=== PATIENT | female | born 1985 | race Caucasian/White ===

== ENCOUNTER 2017-05-04 17:40 | Outpatient (CLI) | payer OTHER ==
[~2017-05-04] VITALS: Ht 162.6 cm; Wt 74.0 kg
[~2017-05-04 17:40] MED LIST: IBUP-1222 PO
[2017-05-04 17:45] VITALS: BP 135/83
[2017-05-04] MEDS ORDERED: PREN1TAB60 PO (17:56)
[2017-05-04] MEDS ORDERED: FENTANYL/BUPIV./NS/PF 250 ML EPIDCONT ONE (19:25)
[2017-05-04] MEDS ORDERED: LIDOCAINE/PF 1.5%-EPI 1:200K, 30ML ONE (19:25)
[2017-05-04] MEDS ORDERED: BUPIVACAINE/PF 0.25% ONE (19:25)
[2017-05-05] MEDS ORDERED: IBUP-1222 PO (11:35)
[2017-05-05] MEDS ORDERED: OXYC-302 PO (11:36)
== END 2017-05-04 19:59 | disposition home or self-care (01) ==
LOC: LDOP 17:40
PROVIDERS: ATTEND Obstetrics & Gynecology
DX: Z02.9 Encounter for administrative examinations, unspecified (principal)
CPT/HCPCS: J3490; J3010

== ENCOUNTER → 2018-11-04 | Outpatient (CLI) | payer OTHER ==
[~2018-11-04] MED LIST changes: +LIDOCAINE-MPF 1%, 5ML ONE; +OXYC-302 PO; +PREN1TAB60 PO
== END | disposition home or self-care (01) ==
LOC: RAD 13:12
PROVIDERS: ATTEND Surgery
DX: E04.1 Nontoxic single thyroid nodule (principal)
CPT/HCPCS: 10005; 88173

== ENCOUNTER → 2019-08-16 | Outpatient (CLI) | payer OTHER ==
[~2019-08-16] MED LIST changes: -LIDOCAINE-MPF 1%, 5ML ONE; +No meds per pt.
== END | disposition home or self-care (01) ==
LOC: STAR 10:35
PROVIDERS: ATTEND Surgery
DX: Z01.818 Encounter for other preprocedural examination (principal); E04.1 Nontoxic single thyroid nodule
CPT/HCPCS: 36415; 84432; 86800

== ENCOUNTER 2019-08-23 06:03 | Day surgery (SDC) | payer OTHER ==
[~2019-08-23] VITALS: Ht 162.6 cm; Wt 64.2 kg
[2019-08-23] MEDS ORDERED: LACTATED RINGERS 1,000 ML IV SCH (06:33)
[2019-08-23 06:35] VITALS: BP 103/66
[2019-08-23] MEDS ORDERED: MIDAZOLAM 1 MG/ML, 2ML ONE (06:49)
[2019-08-23] MEDS ORDERED: PROPOFOL 50 ML ONE (06:49)
[2019-08-23 06:50] LABS: HCG UR SG 1.023 (1.003-1.030)
[2019-08-23] MEDS ORDERED: FENTANYL PF 250 MCG/5ML ONE (06:50)
[2019-08-23] MEDS ORDERED: ROCURONIUM 10MG/ML,5ML ONE (06:53)
[2019-08-23] MEDS ORDERED: DEXAMETHASONE 4 MG/ML, 1ML ONE (06:53)
[2019-08-23] MEDS ORDERED: SUCCINYLCHOLINE 20 MG/ML, 10ML ONE (06:53)
[2019-08-23] MEDS ORDERED: ONDANSETRON 2MG/ML, 2ML ONE (06:53)
[2019-08-23] MEDS ORDERED: CEFAZOLIN 1,000 MG ONE (06:53)
[2019-08-23] MEDS ORDERED: ACETAMINOPHEN 325 MG TABLET PO PRN (07:30)
[2019-08-23] MEDS ORDERED: DIAZEPAM 5 MG/ML, 2ML IVPush PRN (07:30)
[2019-08-23] MEDS ORDERED: PROMETHAZINE 25 MG/ML, 1ML IV PRN (07:30)
[2019-08-23] MEDS ORDERED: MIDAZOLAM 1 MG/ML, 2ML IV PRN (07:30)
[2019-08-23] MEDS ORDERED: METOPROLOL 1 MG/ML, 5ML IV PRN (07:30)
[2019-08-23] MEDS ORDERED: ONDANSETRON 2MG/ML, 2ML IV PRN (07:30)
[2019-08-23] MEDS ORDERED: EPHEDRINE 50 MG/ML, 1ML IVPush PRN (07:30)
[2019-08-23] MEDS ORDERED: MEPERIDINE/PF 25MG/ML,1ML IVPush PRN (07:30)
[2019-08-23] MEDS ORDERED: OXYcodone 5 MG/5 ML ORAL.SOL UDC PO PRN (07:30)
[2019-08-23] MEDS ORDERED: DIPHENHYDRAMINE 50 MG/ML, 1ML IVPush PRN (07:30)
[2019-08-23] MEDS ORDERED: ONDANSETRON ODT 8 MG PO PRN (07:30)
[2019-08-23] MEDS ORDERED: hydrALAzine 20 MG/ML, 1ML IV PRN (07:30)
[2019-08-23] MEDS ORDERED: HYDROmorphone 2 MG/ML, 1ML IVPush PRN (07:30)
[2019-08-23] MEDS ORDERED: EPHEDRINE 50 MG/ML, 1ML IM PRN (07:30)
[2019-08-23] MEDS ORDERED: OXYcodone 5 MG/5 ML ORAL.SOL UDC ONE (08:21)
[2019-08-23] MEDS ORDERED: FENTANYL PF 100 MCG/2ML ONE (08:21)
[2019-08-23] MEDS ORDERED: ACETAMINOPHEN 650 MG/20.3 ML UDC ONE (08:21)
[2019-08-23] MEDS: FENTANYL PF 100 MCG/2ML IV PRN ×3 (08:27→08:53)
== END 2019-08-23 10:50 | disposition home or self-care (01) ==
LOC: OUT 06:03
PROVIDERS: ATTEND Surgery
DX: E04.1 Nontoxic single thyroid nodule (principal); Z72.89 Other problems related to lifestyle; Z88.6 Allergy status to analgesic agent
CPT/HCPCS: 60220; 81025; 88307; C1760; J0330; J0690; J1100; J2250; J2405; J2704; J3010; J7120